=== PATIENT | male | born 1990 | race Caucasian/White ===

== ENCOUNTER 2022-01-21 17:27 | Outpatient (CLI) | payer BC, SELFPAY ==
--- NOTE | ~2022-01-21 | MR_ITS ---
EXAMINATION: MR wrist LT wo con DATE: 01/21/2022 18:04 INDICATION: Chronic left wrist pain. TECHNIQUE: Magnetic resonance imaging (MRI) of the wrist was performed without intravenous contrast. Sequences performed include coronal T1-weighted FSE, coronal PD-weighted FS FSE, axial PD-weighted FS FSE, axial PD-weighted FSE, sagittal PD-weighted FSE, and sagittal PD-weighted FS FSE. COMPARISON: None FINDINGS: Intrinsic ligaments: There is a full-thickness tear of the proximal (membranous) component of scapholunate ligament. Lunot riquetral ligament is normal. Triangular fibrocartilage complex (TFCC): There is a full-thickness tear of triangular fibrocartilage. Extensor wrist: The extensor tendons are normal. Flexor wrist: The flexor tendons are normal. Median nerve is normal. Guyon's canal: Ulnar nerve is normal. Bones/other: Bone alignment is normal. No fracture. There are tiny osteophytes of triscaphe joint and first carpom etacarpal joint. The cartilage is normal. There are small effusions of the midcarpal compartment and first carpometacarpal joint. IMPRESSION: 1. Full-thickness tear of the proximal component of scapholunate ligament. 2. Full-thickness tear of triangular fibrocartilage. Reviewed, dictated and finalized at location A.
== END 2022-01-21 17:28 ==
LOC: MICIMG 17:27
PROVIDERS: PCP Nurse Practitioner; Visit Provider Nurse Practitioner
DX: S63.592A Other specified sprain of left wrist, initial encounter (principal); X58.XXXA Exposure to other specified factors, initial encounter
CPT/HCPCS: 73221